=== PATIENT | male | born 2000 | race Hispanic/Latino ===

== ENCOUNTER 2020-09-19 08:50 | Emergency (ER) | payer BC ==
[2020-09-19] MEDS ORDERED: HYDROcodone/ACETAMINOPHEN 5-325 MG TAB PO ONE (09:49)
--- NOTE | 2020-09-19 09:55 | Emergency Department Report ---
HPI - General Chief Complaint: Extremity Injury, Lower Time Seen by Provider: 09/19/20 09:46 - HPI HPI: Room 32 The patient is a 20-year-old male present with a chief complaint of right ankle pain. Patient states that yesterday evening at approximately 19: 00 while playing basketball he came down and hyper inverted his right foot. Patient states he has had pain in the right ankle since. Patient denies loss of consciousness. Patient gives his pain a score of 7-8/10 ED Past Medical Hx - Past Medical History Previous Medical History?: No - Surgical History Past Surgical History?: Yes Additional Surgical History: tonsilectomy - Family History Family history: no significant - Social History Smoking Status: Never Smoker Substance Use Type: None (Denies illicit drug use), Alcohol (Rarely) - Medications Home Medications: Home Medications Medication Instructions Recorded Confirmed Last Taken Type Cyclobenzaprine [Flexeril] 10 mg PO TID PRN #10 tablet 09/19/20 Unknown Rx HYDROcodone/APAP 5-325 [[place] 1 - 2 each PO Q6HR PRN #10 tablet 09/19/20 Unknown Rx 5/325] Ibuprofen [Motrin 800 MG tab] 800 mg PO Q8HR PRN #20 tablet 09/19/20 Unknown Rx ED Review of Systems ROS: Stated complaint: RIGHT FOOT INJURY Other details as noted in HPI Constitutional: no symptoms reported Eyes: denies: eye pain ENT: denies: throat pain Respiratory: no symptoms reported Cardiovascular: denies: chest pain Endocrine: no symptoms reported Gastrointestinal: denies: abdominal pain Genitourinary: denies: dysuria Musculoskeletal: arthralgia Skin: denies: lesions Neurological: denies: headache Physical Exam - Physical Exam Vital Signs: Vital Signs 09/19/20 09:02 Temperature 99.1 F Pulse Rate 70 Respiratory 20 Rate Blood Pressure 125/63 O2 Sat by Pulse 97 Oximetry Physical Exam: GENERAL: The patient is well-developed well-nourished male lying on chair not appearing to be in acute distress. [] HEENT: Normocephalic. Atraumatic. NECK: Trachea midline CHEST/LUNGS: There is no respiratory distress noted. HEART/CARDIOVASCULAR: Regular. There is no tachycardia. 2+ right DP SKIN: There is trace ecchymosis to the lateral aspect of the right ankle NEURO: The patient is awake, alert, and oriented. The patient is cooperative. The patient has no focal neurologic deficits. The patient has normal speech. GCS 15. MUSCULOSKELETAL: There is tenderness to bilateral malleoli of the right ankle. There is no tenderness to palpation over the navicular or base of the fifth metatarsal ED Course Vital Signs 09/19/20 09:02 Temperature 99.1 F Pulse Rate 70 Respiratory 20 Rate Blood Pressure 125/63 O2 Sat by Pulse 97 Oximetry ED Medical Decision Making - Radiology Data Radiology results: report reviewed (Right ankle x-ray), image reviewed (Right ankle x-ray) interpreted by me: Right ankle x-ray-no acute fracture, no dislocation. No foreign body seen [facility] [address] [place] [address] XRay Report Signed Patient: ADAL CASTORENA MR#: [id number] : 2000 Acct:[id number] Age/Sex: 20 / M ADM Date: 09/19/20 Loc: ED Attending Dr: Ordering Physician: CLAUDETTE RAM MD Date of Service: 09/19/20 Procedure(s): XR ankle 3+V RT Accession Number(s): [id number] cc: CLAUDETTE RAM MD Fluoro Time In Minutes: XR ankle 3+V RT INDICATION / CLINICAL INFORMATION: Pain after hyperinversion during basketball. COMPARISON: None available. FINDINGS: BONES/JOINT(S): No acute fracture or subluxation. No significant degenerative changes. SOFT TISSUES: There is soft tissue swelling in the lateral ankle. ADDITIONAL FINDINGS: None. Signer Name: Roberto Monzon MD Signed: 09/19/2020 10:39 AM Workstation Name: [email or web address] Transcribed By: MEI Dictated By: Roberto Monzon MD Electronically Authenticated By: Roberto Monzon MD Signed Date/Time: 09/19/20 1039 DD/ 1038 TD/TT: Print Cancel - Differential Diagnosis Ankle sprain, ankle fracture Critical care attestation.: If time is entered above; I have spent that time in minutes in the direct care of this critically ill patient, excluding procedure time. ED Disposition Clinical Impression: Acute right ankle pain, Right ankle sprain Disposition: DC- TO HOME OR SELFCARE Is pt being admited?: No Does the pt Need Aspirin: No Condition: Stable Instructions: How to Use a Stirrup Ankle Brace, [id number], How to Use Cold Therapy, [id number], Ankle Sprain, [id number]-[id number]-[id number], Musculoskeletal Pain Additional Instructions: Return to the emergency department should you develop worsening symptoms, inability to tolerate food or liquids, high fever or any other concerns Prescriptions: Cyclobenzaprine [Flexeril] 10 mg PO TID PRN #10 tablet PRN Reason: Muscle Spasm Ibuprofen [Motrin 800 MG tab] 800 mg PO Q8HR PRN #20 tablet PRN Reason: Pain, Moderate (4-6) HYDROcodone/APAP 5-325 [[place] 5/325] 1 - 2 each PO Q6HR PRN #10 tablet PRN Reason: Pain Referrals: FRANSISCO VELASQUEZ MD [Staff Physician] - 3-5 Days (Dr. Velasquez is an orthopedic surgeon. Please follow-up with him for further evaluation) Time of Disposition: 10:46
--- NOTE | 2020-09-19 10:43 | XRay Report ---
XR ankle 3+V RT INDICATION / CLINICAL INFORMATION: Pain after hyperinversion during basketball. COMPARISON: None available. FINDINGS: BONES/JOINT(S): No acute fracture or subluxation. No significant degenerative changes. SOFT TISSUES: There is soft tissue swelling in the lateral ankle. ADDITIONAL FINDINGS: None. Signer Name: Roberto Monzon MD Signed: 09/19/2020 10:39 AM Workstation Name: [facility]
[2020-09-19 11:01] VITALS: BP 126/88
== END 2020-09-19 11:00 | disposition home or self-care (01) ==
LOC: ED 08:50
DX: S93.491A Sprain of other ligament of right ankle, initial encounter (principal); Z90.89 Acquired absence of other organs; Z72.89 Other problems related to lifestyle; Z79.899 Other long term (current) drug therapy; X50.1XXA Overexertion from prolonged static or awkward postures, initial encounter; Y93.64 Activity, baseball; Y92.89 Other specified places as the place of occurrence of the external cause; Y99.8 Other external cause status
CPT/HCPCS: 99283

== ENCOUNTER 2021-01-05 22:52 | Emergency (ER) | payer BC ==
[2021-01-06 00:09] VITALS: BP 120/61
--- NOTE | 2021-01-06 01:48 | Emergency Department Report ---
ED General Adult HPI - General Chief complaint: Extremity Injury, Lower Stated complaint: LEFT FOOT INJURY Time Seen by Provider: 01/06/21 01:40 Source: patient Mode of arrival: Ambulatory Limitations: No Limitations - History of Present Illness Initial comments: 21-year-old male patient presents emergency department with complaints of traumatic left foot pain starting yesterday. Patient states his foot was accidentally stepped on. No history of prior injuries to the left foot. Patient has been weightbearing since the injury occurred. Denies hip pain, knee pain, ankle pain, paresthesias, numbness. Denies all other complaints at this time. - Related Data Previous Rx's Medication Instructions Recorded Last Taken Type Cyclobenzaprine [Flexeril] 10 mg PO TID PRN #10 tablet 09/19/20 Unknown Rx HYDROcodone/APAP 5-325 [[place] 1 - 2 each PO Q6HR PRN #10 tablet 09/19/20 Unknown Rx 5/325] Ibuprofen [Motrin 800 MG tab] 800 mg PO Q8HR PRN #20 tablet 09/19/20 Unknown Rx Allergies Allergy/AdvReac Type Severity Reaction Status Date / Time No Known Allergies Allergy Verified 09/19/20 09:25 ED Review of Systems ROS: Stated complaint: LEFT FOOT INJURY Other details as noted in HPI Other: GENERAL: Negative for fever. CARDIOVASCULAR: Negative for chest pain. PULMONARY: Negative for shortness of breath. GASTROINTESTINAL: Negative for abdominal pain. MUSCULOSKELETAL: Positive for foot pain. NEUROLOGICAL: Negative for headache. INTEGUMENTARY: Negative for rash. ED Past Medical Hx - Past Medical History Previous Medical History?: No - Surgical History Past Surgical History?: Yes Additional Surgical History: tonsilectomy - Social History Smoking Status: Never Smoker Substance Use Type: None (Denies illicit drug use), Alcohol (Rarely) - Medications Home Medications: Home Medications Medication Instructions Recorded Confirmed Last Taken Type Cyclobenzaprine [Flexeril] 10 mg PO TID PRN #10 tablet 09/19/20 Unknown Rx HYDROcodone/APAP 5-325 [[place] 1 - 2 each PO Q6HR PRN #10 tablet 09/19/20 Unknown Rx 5/325] Ibuprofen [Motrin 800 MG tab] 800 mg PO Q8HR PRN #20 tablet 09/19/20 Unknown Rx ED Physical Exam - General Limitations: No Limitations - Other Other exam information: General: Awake, appropriately interactive, no acute distress. Neck: Supple. Full range of motion intact. Cardiovascular: Normal peripheral perfusion. Pulmonary: No respiratory distress. Patient is speaking normally without use of accessory muscles. Skin: No apparent rashes or lesions. Neurological: No facial asymmetry. Speech is clear. Follows commands. Patient is alert and oriented. Musculoskeletal: Tenderness to palpation along the distribution of the navicular bone of the left foot without obvious deformity or dislocation. Full range of motion intact. Ambulatory without assistance. No plantar ecchymosis. No malleolar tenderness. Distal neurovascular and motor/sensory function intact. Psych: Cooperative. Appropriate mood and affect. ED Course Vital Signs 01/06/21 00:08 Temperature 97.8 F Pulse Rate 64 Respiratory 18 Rate Blood Pressure 120/61 O2 Sat by Pulse 99 Oximetry ED Medical Decision Making - Medical Decision Making Differential diagnosis including but not limited to: sprain, strain, fracture, contusion, dislocation On reevaluation, patient remains stable. Repeat neurovascular exam remains intact. X-rays without acute process. History and exam findings suggestive of foot contusion. No clinical indication for further diagnostic work-up on an emergent basis at this time. Patient will be discharged home to follow-up with primary care provider. Patient expressed understanding and is agreeable to plan of care. RICE precautions discussed. Strict return precautions provided. Repeat exam is unremarkable and benign. History, exam, diagnostic testing, and current condition do not suggest worrisome pathology to warrant further testing, continued ED treatment, admission, or surgical evaluation at this point. Given the low probability of a significant medical illness, it would be more likely to result in harm than benefit to perform further testing at this stage. Discussed findings, presumptive diagnosis, need for follow-up and specific signs/symptoms that should prompt immediate return to the emergency department. Instructions were explained in detail to the patient in addition to giving written discharge information. Patient expressed understanding and was given the opportunity to ask questions, all of which were satisfactorily answered prior to discharge h ome. Critical care attestation.: If time is entered above; I have spent that time in minutes in the direct care of this critically ill patient, excluding procedure time. ED Disposition Clinical Impression: Contusion of left foot Qualifiers: Encounter type: initial encounter Qualified Code(s): S90.32XA - Contusion of left foot, initial encounter Disposition: HOME / SELF CARE / HOMELESS Is pt being admited?: No Does the pt Need Aspirin: No Condition: Stable Instructions: Foot Contusion, [id number] Additional Instructions: X-rays are normal. Take Tylenol every 4 hours and Motrin every 8 hours as needed for pain. Apply ice to affected area as needed for pain. Keep left foot elevated as often as possible to reduce swelling. Follow-up with primary care provider this week. Call Friday to schedule an appointment. See referral information below. Return to the emergency department immediately for new or worsening symptoms. Referrals: PEDRO BORJA MD [Staff Physician] - 3-5 Days [facility] [Provider Group] - 3-5 Days Time of Disposition: 03:07
--- NOTE | 2021-01-06 02:11 | XRay Report ---
LEFT FOOT 3 VIEW(S) INDICATION / CLINICAL INFORMATION: crush injury COMPARISON: None available. FINDINGS: BONES / JOINT(S): No acute fracture or subluxation. No significant arthritis. SOFT TISSUES: No significant abnormality. ADDITIONAL FINDINGS: None. Signer Name: Derik Archibald DO Signed: 01/06/2021 2:07 AM Workstation Name: [email or web address]
== END 2021-01-06 03:25 | disposition home or self-care (01) ==
LOC: ED 22:52
DX: S90.32XA Contusion of left foot, initial encounter (principal); X58.XXXA Exposure to other specified factors, initial encounter; Y93.89 Activity, other specified; Y92.89 Other specified places as the place of occurrence of the external cause; Y99.8 Other external cause status
CPT/HCPCS: 99283